=== PATIENT | male | born 1955 | race Two or more races ===

== ENCOUNTER 2023-02-01 14:23 | Inpatient (IN) | payer OTHER ==
[~2023-02-01] VITALS: Ht 162.6 cm; Wt 63.0 kg
[~2023-02-01 14:23] MED LIST: ENALAPRIL MALEA20 MG PO; GLUCOTROL10 MG PO; LIPITOR40 MG PO; NEURONTIN300 MG PO; XANAX XR0.5 MG PO; ZOLOFT50 MG PO; [UNRECOGNIZED DRUG - OTHER]
[2023-02-01] MEDS ORDERED: JARDIANCE25 MG PO (15:44)
[2023-02-01] MEDS ORDERED: JANUMET XR 1001 EACH PO (15:44)
--- NOTE | 2023-02-01 16:00 | NUR ---
PACIENTE ALERTA Y ORIENTADO X3, REFIERE TENER DOLOR DE ROSSANA, MOLESTIA EN AMBOS OIDOS Y DEBILIDAD EN LA MANO DERECHA. SE MONITOREAN VS. SE REALIZA EKG Y SE UBICA
--- NOTE | 2023-02-01 16:50 | NUR ---
PTE ALERTA Y ORIENTADO X3 SE REALIZAN MUESTRAS DE LAB BELL ORDEN MEDICA Y BAJO MEDIDAS ASEPTICAS POR PORSHA BRIDGES. SE ADMINISTRA MEDICAMENTO BELL ORDEN MEDICA POR PORSHA BRIDGES.
[2023-02-01 16:55] LABS: HEMATOCRIT 39.3 % (39.0-48.0); HEMOGLOBIN 12.8 g/dL (13-16.00); MEAN CELL VOLUME 84.5 fL (80.0-100.00); MEAN CORPUSCULAR HEMOGLOBIN 27.6 pg (27.00-32.0); MEAN CORPUSCULAR HGB CONC 32.6 g/dl (32.0-36.0); PLATELET COUNT 199 K/uL (150-450); RED BLOOD COUNT 4.65 M/uL (4.00-6.00); RED CELL DISTRIBUTION WIDTH 13.8 % (11.5-14.5)
[2023-02-01 16:58] LABS: URINE APPEARANCE Clear; URINE BILIRRUBIN Negative (NEGATIVE); URINE BLOOD NHT; URINE COLOR Yellow; URINE LEUKOCYTE Negative; URINE NITRATE Negative; URINE PROTEIN Trace (NEGATIVE); URINE UROBILINOGEN 0.2 E.U./dl
[2023-02-01 17:00] LABS: URINE BACTERIA 3.7 uL (0.0-1933); URINE EPITHELIAL CELLS 0.3 uL (0.0-38.8); URINE GLUCOSE >=1000 MG/DL (NEGATIVE); URINE RBC 30.8 uL (0.0-20.8); URINE WBC 2.3 uL (0.0-23.2)
[2023-02-01 17:13] LABS: INR 1.04; PARTIAL THROMBOPLASTIN TIME 24.2 SECONDS (22.0-34.0); PROTHROMBIN TIME 10.9 SECONDS (9.0-11.5)
[2023-02-01 17:16] LABS: CALCIUM 9.8 mg/dL (8.5-10.1); CREATININE SERUM 1.13 mg/dL (0.70-1.30); GFR 64.34; POTASSIUM 4.17 mEq/L (3.5-5.1)
[2023-02-02 06:58] LABS: CHOL HDL RATIO 2.1 (0-5.0)
== END 2023-02-04 10:22 | disposition home or self-care (01) | DRG 65 ==
LOC: ER 14:23 → MEDJ 19:57
PROVIDERS: General Practice; ADMIT Internal Medicine; ATTEND Internal Medicine
PROC: BW28ZZZ Computerized Tomography (CT Scan) of Head (ICD-10-PCS; principal; 2023-02-01)
PROC: B24BZZZ Ultrasonography of Heart with Aorta (ICD-10-PCS; 2023-02-01)
PROC: B345ZZZ Ultrasonography of Bilateral Common Carotid Arteries (ICD-10-PCS; 2023-02-01)
PROC: BW38ZZZ Magnetic Resonance Imaging (MRI) of Head (ICD-10-PCS; 2023-02-01)
DX: I63.89 Other cerebral infarction (principal); G45.9 Transient cerebral ischemic attack, unspecified; G81.91 Hemiplegia, unspecified affecting right dominant side; Z20.822 Contact with and (suspected) exposure to COVID-19; I10 Essential (primary) hypertension; E11.9 Type 2 diabetes mellitus without complications; Z79.4 Long term (current) use of insulin
CPT/HCPCS: 70544